=== PATIENT | female | born 1980 | race Caucasian/White ===

== ENCOUNTER → 2021-05-24 | Outpatient (CLI) | payer OTHER ==
[~2021-05-24] MED LIST: BACTRIM DS TAB1 EACH PO; BUPRENORPHIN-N1 EACH SL; CELEXA 20MG TAB20 MG PO; KEPPRA 500 MG500 MG PO; KEPPRA500 MG PO; KEPPRA750 MG PO; LIBRIUM CAP 2525 MG PO
== END ==
LOC: MAMO 08:05
DX: Z12.31 Encounter for screening mammogram for malignant neoplasm of breast (principal)
CPT/HCPCS: 77063; 77067

== ENCOUNTER → 2021-09-11 | Outpatient (CLI) | payer OTHER | LOC: KOH-I 15:18 | DX: R20.2 Paresthesia of skin (principal); R20.9 Unspecified disturbances of skin sensation; M25.50 Pain in unspecified joint; G40.909 Epilepsy, unspecified, not intractable, without status epilepticus; M65.332 Trigger finger, left middle finger | CPT/HCPCS: 72100; 73502; 73562 ==